=== PATIENT | male | born 1970 | race Caucasian/White ===

== ENCOUNTER 2016-07-30 08:52 | Emergency (ER) | payer BC, OTHER ==
--- NOTE | 2016-07-30 09:46 | UCPHY ---
H & P Time Seen by Provider: 07/30/16 09:06 Patient Type: Established HPI/ROS: CHIEF COMPLAINT: Cough, body aches, vomiting HPI: The patient is a 46-year-old male with no significant past medical history. He reports approximately 1 day of subjective fever, body aches, mild sore throat, cough and vomiting. He denies abdominal pain or diarrhea. Denies chest pain. He was recently exposed to a family member that tested positive for influenza B. This was approximately 1 week ago. The patient obtained a flu shot at that time. He denies severe head or neck ache. REVIEW OF SYSTEMS: Aside from elements discussed in the HPI, a comprehensive 10-point review of systems was reviewed and is negative. PMH: Back pain. SOCIAL HISTORY: Works in [employer]. FAMILY HISTORY: Reviewed, noncontributory PHYSICAL EXAM: General:Patient is alert, in no acute distress. He is well appearing. ENT:Eyes are normal to inspection. ENT inspection normal. Neck: Normal inspection. Full range of motion. Respiratory:No respiratory distress. Breath sounds normal bilaterally. Cardiovascular: Regular rate and rhythm. Strong peripheral pulses. Normal cap refill. Abdomen:The abdomen is nontender to palpation. There are no peritoneal signs. There are normal bowel sounds. Back: Normal to inspection. No tenderness to palpation. Skin: Normal color. No rash. Warm and dry. Extremities: Normal appearance. Full range of motion. Neuro: Oriented x3. Normal motor function. Normal sensory function. Smoking Status: Never smoked Constitutional: Initial Vital Signs Temperature (C) 37.1 C 07/30/16 09:13 Heart Rate 120 H 07/30/16 09:13 Respiratory Rate 20 07/30/16 09:13 Blood Pressure 148/106 H 07/30/16 09:13 O2 Sat (%) 90 L 07/30/16 09:13 O2 Delivery Mode Room Air Allergies/Adverse Reactions: fluticasone propionate [From Flonase] Allergy (Verified 02/27/14 16:43) Home Medications: Medication Instructions Recorded Allopurinol [Allopurinol 100 MG 100 mg PO DAILY 12/19/11 (RX)] Methocarbamol [Robaxin 750 mg (RX)] 1,500 mg PO QID PRN #40 tab 02/27/14 Oseltamivir Phosphate [Tamiflu 75 75 mg PO BID 5 Days 07/30/16 mg (RX)] MDM/Departure - MDM Diagnostics: Chest x-ray viewed and interpreted by myself: No acute findings. ED Course/Re-evaluation: This patient presents with flu-like symptoms. He has recent exposure to influenza B and I suspect, especially considering the inclusion of vomiting as 1 of his symptoms, that this is the underlying etiology despite the fact that his flu swab is negative. Patient elects to be treated with Tamiflu. I see no evidence of pneumonia, severe sepsis,. Patient has no abdominal pain to suggest bowel obstruction, bowel perforation, appendicitis or diverticulitis. We discussed strict return precautions. - Depart Disposition: Home, Routine, Self-Care Clinical Impression: Influenza Condition: Good Instructions: Influenza (ED) Additional Instructions: Despite the fact that your initial flu swab was negative, I am suspicious that you have influenza B. Take Tamiflu as prescribed. Use [id number] cold medicine, ibuprofen and Tylenol as directed. Return to the emergency department urgent care for chest pain, abdominal pain, high fever, difficulty breathing or other concerns. Stay well hydrated. Prescriptions: Oseltamivir Phosphate [Tamiflu 75 mg (RX)] 75 mg PO BID 5 Days Referrals: Alex Ding MD [Primary Care Provider] - As per Instructions - PQRS PQRS Measurement: 134: Depression screening and followup, PRIME MD-PHQ2 (12 years and older) Over the last 2 weeks, how often have you been bothered by any of the following problems? 1. Feeling down, depressed, or hopeless? 2. Little interest or pleasure in doing things? Patient answered no to both 1 and 2 130: Documentation of medications. Reviewed all patient medications, doses, route and frequency. 226: Do you smoke? No. 51: 18 years old and older with diagnosis of COPD, spirometry performance. Spirometry not performed; equipment not available. Patient has no history of COPD 52: 18 years old and older with COPD and symptoms of COPD or FEV1<60% predicted prescribed a B Agonist. Spirometry not performed; equipment not available.
[2016-07-30 10:16] VITALS: BP 143/88; PULSE 115; RESP 18; TEMP 99.9; O2SAT 93
== END 2016-07-30 10:16 | disposition home or self-care (01) ==
LOC: CED 08:52
DX: J11.1 Influenza due to unidentified influenza virus with other respiratory manifestations (principal)
CPT/HCPCS: 71020-PO; 87400-PO; 99214-PO; G0463-PO